=== PATIENT | male | born 1960 | race Asian ===

== ENCOUNTER 2017-02-19 14:02 | Day surgery (SDC) | payer OTHER ==
[~2017-02-19] VITALS: Ht 167.6 cm; Wt 54.6 kg
[2017-02-19 14:53] VITALS: Ht 167.6 cm; Wt 54.6 kg
[2017-02-19] MEDS ORDERED: NO MEDS (14:56)
[2017-02-19 15:13] VITALS: BP 110/54; PULSE 68; RESP 18
[2017-02-19] MEDS ORDERED: FENTAnyl 50 MCG/ML VIAL ONE (16:45)
[2017-02-19] MEDS ORDERED: MIDAZOLAM 1 MG/ML 2 ML INJ ONE (16:45)
--- NOTE | 2017-02-19 16:47 | OPPN ---
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
--- NOTE | 2017-02-19 16:47 | OPPN ---
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
--- NOTE | 2017-02-19 16:47 | OPPN ---
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
--- NOTE | 2017-02-20 04:07 | GILP ---
DATE OF PROCEDURE: NAME OF PROCEDURES: 1. Esophagogastroduodenoscopy and biopsy. 2. Colonoscopy and polypectomy. SURGEON: Darling Lemus MD PREOPERATIVE DIAGNOSES: 1. Chronic heartburn. 2. Screening colonoscopy. POSTOPERATIVE DIAGNOSES 1. Reflux esophagitis with erosions. 2. Gastritis with multiple erosions. 3. Gastric mucosal biopsies were taken for Helicobacter pylori test. 4. Prominent gastric folds on the body of the stomach and biopsies were taken for histopathology. 5. Colonoscopy all the way to the cecum. 6. Sigmoid colon polyp was removed using the snare and electrocautery. 7. Internal hemorrhoids. INDICATION FOR THE PROCEDURE: Mr. Trevin Moran is a 56-year-old male patient who had chronic heartburn, not responding to therapy. He also needed screening colonoscopy. The procedures and possible complications are well explained to the patient, he understood and conse nted to the procedure. DESCRIPTION OF PROCEDURE: Under the influence of fentanyl and Versed, the gastroscope was carefully introduced into the esophagus and under direct vision, it was advanced to the stomach and through t he pylorus into the duodenal bulb and descending duodenum. FINDINGS: ESOPHAGUS: The patient had reflux esophagitis with erosions at the lower end. STOMACH: He had gastritis with multiple erosions. Gastric mucosal biopsies were taken for H. pylor i test. The patient had a very prominent fold in the body of the stomach and biopsies were taken fo r histopathology. DUODENUM: Normal. The colonoscope was carefully introduced in the rectum and under direct vision, it was advanced all the way to the cecum. FINDINGS: The patient had a sigmoid colon polyp and it was removed using the snare and electrocaute ry. He was noted to have internal hemorrhoids. He tolerated the procedures very well and there was no complication from the procedures. At the end of the procedures, he was awake with stable vital signs and he was discharged home to the care of h is family. IMPRESSION: Please see postoperative diagnosis. PLAN: 1. Pantoprazole 40 mg p.o. q.a.m. 2. Await histopathology reports. 3. Next screening colonoscopy in 5 years. Dictated By: DARLING FLORENCE/GREGORIA Conf#: [id number] DID#: [id number]
== END 2017-02-19 17:27 | disposition home or self-care (01) ==
LOC: GIL 14:02
PROVIDERS: ATTEND Internal Medicine Gastroenterology
DX: Z12.11 Encounter for screening for malignant neoplasm of colon (principal); D12.5 Benign neoplasm of sigmoid colon; K21.0 Gastro-esophageal reflux disease with esophagitis; K29.60 Other gastritis without bleeding; K64.8 Other hemorrhoids
CPT/HCPCS: 43239; 45380; 87081; 88305; J2250; J3010; Z7610

== ENCOUNTER 2017-05-02 07:49 | Day surgery (SDC) | END 2017-05-02 14:01 | disposition home or self-care (01) ==